=== PATIENT | female | born 1995 | race African-American/Black ===

== ENCOUNTER 2017-04-12 14:45 | Emergency (ER) | payer MEDICAID ==
[~2017-04-12] VITALS: Ht 170.2 cm; Wt 95.7 kg
[~2017-04-12 14:45] MED LIST: ALLERGY MED; BACTRIM DS TAB1 EACH PO; CELEBREX 200 M200 M1 PO; CETIRIZINE HCL5 MG PO; DIFLUCAN150 MG PO; PROTONIX40 M1 PO; STOMACH MED
[2017-04-12] MEDS ORDERED: FLEXERIL PO (14:59)
[2017-04-12] MEDS ORDERED: IBUPROFEN 800800 M1 PO (16:01)
[2017-04-12 16:25] VITALS: BP 98/70
== END 2017-04-12 16:26 | disposition home or self-care (01) ==
LOC: M.ERS 14:45
DX: S46.911A Strain of unspecified muscle, fascia and tendon at shoulder and upper arm level, right arm, initial encounter (principal); J45.909 Unspecified asthma, uncomplicated; M19.90 Unspecified osteoarthritis, unspecified site; X50.0XXA Overexertion from strenuous movement or load, initial encounter; Y93.89 Activity, other specified; Y92.89 Other specified places as the place of occurrence of the external cause; Y99.8 Other external cause status

== ENCOUNTER 2017-10-14 19:41 | Emergency (ER) | payer MEDICAID ==
[~2017-10-14] VITALS: Ht 170.2 cm; Wt 86.2 kg
[~2017-10-14 19:41] MED LIST changes: +FLEXERIL PO; +IBUPROFEN 800800 M1 PO
[2017-10-14] MEDS ORDERED: VALTREX1000 MG (19:50)
[2017-10-14 20:00] LABS: URINE BILIRUBIN NEGATIVE (Negative); URINE BLOOD 2+ (Negative); URINE CLARITY CLEAR; URINE COLOR YELLOW; URINE GLUCOSE-RANDOM NEGATIVE (Negative); URINE KETONES NEGATIVE (Negative); URINE LEUKOCYTES-REFLEX NEGATIVE (Negative); URINE NITRITE-REFLEX NEGATIVE (Negative); URINE PROTEIN NEGATIVE (Negative)
[2017-10-14 20:19] LABS: BACTERIA-REFLEX >30 Many /HPF (None Seen); CASTS None Seen /LPF (None Seen); CRYSTALS None Seen /LPF (None Seen); MUCUS None Seen strn/LPF (None Seen); SQUAMOUS >10 Many /LPF (0-3); URINE RBC 3-10 Few /HPF (0-2); URINE WBC-REFLEX 0-5 Rare /HPF (0-5)
[2017-10-14] MEDS ORDERED: ACETAMINOPHEN-1 EAC1 PO (20:30)
[2017-10-14 20:56] LABS: ABSOLUTE EOSINOPHILS 0.1 thou/uL (0.0-0.7); ABSOLUTE LYMPHOCYTES 1.8 thou/uL (0.8-5.3); ABSOLUTE MONOCYTES 0.3 thou/uL (0.0-1.2); ABSOLUTE NEUTROPHILS 2.1 thou/uL (1.6-8.1); BASOPHILS 0.9 %; EOSINOPHILS 1.3 %; HEMATOCRIT 39.7 % (37.0-47.0); HEMOGLOBIN 13.2 gm/dL (12.0-15.0); LYMPHOCYTES 41.3 %; MCH 32.2 pg (26.0-34.0); MCHC 33.3 g/dL (28.0-37.0); MCV 96.5 fL (80.0-100.0); MONOCYTES 7.7 %; MPV 10.3 fl. (7.2-11.1); NUCLEATED RBCS 0 /100WBC; PLATELET COUNT* 243 thou/uL (150-400); POLYS 48.8 %; RBC 4.11 mil/uL (4.20-5.00); RDW-CV 13.3 % (10.5-14.5); WBC 4.4 thou/uL (4.0-11.0)
[2017-10-14 21:03] LABS: CALCIUM 9.3 mg/dL (8.5-10.1); CREATININE 0.9 mg/dL (0.6-1.3); POTASSIUM 4.1 mmol/L (3.5-5.1)
[2017-10-14 21:08] LABS: ALBUMIN 3.8 g/dL (3.4-5.0); TOTAL BILIRUBIN 0.3 mg/dL (<0.1-1.0); TOTAL PROTEIN 7.5 g/dL (6.4-8.2)
[2017-10-14] MEDS ORDERED: DOXYCYCLINE 10100 M1 PO (21:21)
[2017-10-14 21:46] VITALS: BP 122/62
== END 2017-10-14 21:46 | disposition home or self-care (01) ==
LOC: M.ERS 19:41
PROVIDERS: Nurse Practitioner Family
DX: N73.9 Female pelvic inflammatory disease, unspecified (principal); J45.909 Unspecified asthma, uncomplicated; M19.90 Unspecified osteoarthritis, unspecified site

== ENCOUNTER 2018-02-28 19:25 | Emergency (ER) | payer MEDICAID ==
[~2018-02-28] VITALS: Ht 170.2 cm; Wt 81.7 kg
[~2018-02-28 19:25] MED LIST changes: +ACETAMINOPHEN-1 EAC1 PO; +DOXYCYCLINE 10100 M1 PO; +VALTREX1000 MG
[2018-02-28] MEDS ORDERED: FLEXERIL PO (19:33)
[2018-02-28] MEDS ORDERED: ZPAK PO (19:45)
[2018-02-28] MEDS ORDERED: TESSALON PERLE100 MG PO (19:45)
[2018-02-28] MEDS ORDERED: PREDNISONE 20 M20 M1 PO (19:45)
[2018-02-28] MEDS ORDERED: ALBUTEROL2.5 MG/31 INH (19:45)
[2018-02-28 20:19] VITALS: BP 136/58
== END 2018-02-28 20:19 | disposition home or self-care (01) ==
LOC: M.ERS 19:25
DX: J20.9 Acute bronchitis, unspecified (principal); J45.909 Unspecified asthma, uncomplicated; M19.90 Unspecified osteoarthritis, unspecified site

== ENCOUNTER → 2018-03-29 | Outpatient (CLI) | payer MEDICAID ==
[~2018-03-29] MED LIST changes: +ALBUTEROL2.5 MG/31 INH; +PREDNISONE 20 M20 M1 PO; +TESSALON PERLE100 MG PO; +ZPAK PO
== END ==
LOC: M.RAD 03-21 09:07
DX: M54.16 Radiculopathy, lumbar region (principal)

== ENCOUNTER → 2018-04-08 | Outpatient (CLI) | payer MEDICAID | LOC: M.ULTRA 09:00 | DX: N83.292 Other ovarian cyst, left side (principal) ==

== ENCOUNTER 2018-06-30 10:01 | Emergency (ER) | payer OTHER, MEDICAID ==
[~2018-06-30] VITALS: Ht 170.2 cm; Wt 89.8 kg
[2018-06-30] MEDS ORDERED: ULTRAM 50MG TAB50 MG PO (10:14)
[2018-06-30] MEDS ORDERED: FLEXERIL PO ×2 (10:14→10:19)
[2018-06-30 10:17] VITALS: BP 108/70
[2018-06-30] MEDS ORDERED: TRAMADOL 50 MG50 MG PO (10:18)
[2018-06-30] MEDS ORDERED: ACETAMINOPHEN-1 EAC1 PO (10:19)
== END 2018-06-30 10:19 | disposition home or self-care (01) ==
LOC: M.ERS 10:01
DX: S40.022A Contusion of left upper arm, initial encounter (principal); V49.59XA Passenger injured in collision with other motor vehicles in traffic accident, initial encounter; Y93.89 Activity, other specified; Y92.89 Other specified places as the place of occurrence of the external cause; Y99.8 Other external cause status

== ENCOUNTER 2019-06-04 10:51 | Emergency (ER) | payer MEDICAID ==
[~2019-06-04] VITALS: Ht 170.2 cm; Wt 92.5 kg
[~2019-06-04 10:51] MED LIST changes: +TRAMADOL 50 MG50 MG PO; +ULTRAM 50MG TAB50 MG PO
[2019-06-04 11:11] LABS: URINE BILIRUBIN NEGATIVE (Negative); URINE BLOOD NEGATIVE (Negative); URINE CLARITY CLEAR; URINE COLOR YELLOW; URINE GLUCOSE-RANDOM NEGATIVE (Negative); URINE KETONES NEGATIVE (Negative); URINE LEUKOCYTES-REFLEX NEGATIVE (Negative); URINE NITRITE-REFLEX NEGATIVE (Negative); URINE PROTEIN NEGATIVE (Negative); URINE SPECIFIC GRAVITY 1.025 (1.005-1.030)
[2019-06-04 12:02] LABS: ABSOLUTE BASOPHILS 0.1 thou/uL (0.0-0.2); ABSOLUTE EOSINOPHILS 0.2 thou/uL (0.0-0.7); ABSOLUTE LYMPHOCYTES 1.3 thou/uL (0.8-5.3); ABSOLUTE MONOCYTES 0.4 thou/uL (0.0-1.2); ABSOLUTE NEUTROPHILS 2.4 thou/uL (1.6-8.1); BASOPHILS 1.3 %; EOSINOPHILS 3.7 %; HEMOGLOBIN 13.1 gm/dL (12.0-15.0); LYMPHOCYTES 30.8 %; MCH 33.3 pg (26.0-34.0); MCHC 34.6 g/dL (28.0-37.0); MCV 96.3 fL (80.0-100.0); MONOCYTES 9.5 %; MPV 9.7 fl. (7.2-11.1); NUCLEATED RBCS 0 /100WBC; PLATELET COUNT* 241 thou/uL (150-400); POLYS 54.7 %; RBC 3.94 mil/uL (4.20-5.00); RDW-CV 13.5 % (10.5-14.5); WBC 4.3 thou/uL (4.0-11.0)
[2019-06-04] MEDS ORDERED: NAPROSYN500 MG PO (12:02)
[2019-06-04] MEDS ORDERED: DOXYCYCLINE 10100 MG PO (12:02)
[2019-06-04] MEDS ORDERED: FLAGYL500 M1 PO (12:02)
[2019-06-04] MEDS ORDERED: ONDANSETRON HCL4 M2 PO (12:02)
[2019-06-04 12:18] LABS: CALCIUM 8.7 mg/dL (8.5-10.1); CREATININE 0.9 mg/dL (0.6-1.3); POTASSIUM 3.9 mmol/L (3.5-5.1)
[2019-06-04 13:03] VITALS: BP 121/69
== END 2019-06-04 13:04 | disposition home or self-care (01) ==
LOC: M.ERS 10:51
PROVIDERS: Nurse Practitioner Family
DX: N73.9 Female pelvic inflammatory disease, unspecified (principal); N76.0 Acute vaginitis; B96.89 Other specified bacterial agents as the cause of diseases classified elsewhere; M19.90 Unspecified osteoarthritis, unspecified site; J45.909 Unspecified asthma, uncomplicated

== ENCOUNTER 2019-07-04 16:31 | Emergency (ER) | payer MEDICAID ==
[~2019-07-04] VITALS: Ht 170.2 cm; Wt 91.2 kg
[~2019-07-04 16:31] MED LIST changes: +DOXYCYCLINE 10100 MG PO; +FLAGYL500 M1 PO; +NAPROSYN500 MG PO; +ONDANSETRON HCL4 M2 PO
[2019-07-04] MEDS ORDERED: ZANAFLEX2 M1 PO (16:45)
[2019-07-04 16:53] LABS: URINE BILIRUBIN NEGATIVE (Negative); URINE BLOOD TRACE (Negative); URINE CLARITY SL CLOUDY; URINE COLOR YELLOW; URINE GLUCOSE-RANDOM NEGATIVE (Negative); URINE KETONES NEGATIVE (Negative); URINE LEUKOCYTES-REFLEX NEGATIVE (Negative); URINE NITRITE-REFLEX NEGATIVE (Negative); URINE PROTEIN NEGATIVE (Negative); URINE SPECIFIC GRAVITY 1.015 (1.005-1.030); URINE UROBILINOGEN 0.2 E.U./dl (0.2-1.0)
[2019-07-04 17:04] LABS: BACTERIA-REFLEX >30 Many /HPF (None Seen); CASTS None Seen /LPF (None Seen); CRYSTALS None Seen /LPF (None Seen); SQUAMOUS >10 Many /LPF (0-3); URINE RBC 0-2 Rare /HPF (0-2); URINE WBC-REFLEX 0-5 Rare /HPF (0-5)
[2019-07-04] MEDS ORDERED: FLAGYL500 M1 PO (17:12)
[2019-07-04] MEDS ORDERED: DIFLUCAN150 MG PO (17:12)
[2019-07-04] MEDS ORDERED: ZOFRAN ODT4 MG PO (17:17)
[2019-07-04 17:30] VITALS: BP 127/69
== END 2019-07-04 17:31 | disposition home or self-care (01) ==
LOC: M.ERS 16:31
PROVIDERS: Nurse Practitioner Psychiatric/Mental Health
DX: N89.8 Other specified noninflammatory disorders of vagina (principal); R30.0 Dysuria; J45.909 Unspecified asthma, uncomplicated; M19.90 Unspecified osteoarthritis, unspecified site

== ENCOUNTER 2019-09-24 11:35 | Emergency (ER) | payer MEDICAID ==
[~2019-09-24] VITALS: Ht 170.2 cm; Wt 93.9 kg
[~2019-09-24 11:35] MED LIST changes: +ZANAFLEX2 M1 PO; +ZOFRAN ODT4 MG PO
[2019-09-24] MEDS ORDERED: CIPROFLOXIN HC2.5 M1 OTIC ×2 (12:24→12:25)
[2019-09-24 12:48] VITALS: BP 119/78
== END 2019-09-24 12:49 | disposition home or self-care (01) ==
LOC: M.ERS 11:35
DX: H10.9 Unspecified conjunctivitis (principal); J45.909 Unspecified asthma, uncomplicated; M19.90 Unspecified osteoarthritis, unspecified site; F17.210 Nicotine dependence, cigarettes, uncomplicated

== ENCOUNTER 2019-10-14 12:30 | Emergency (ER) | payer MEDICAID ==
[~2019-10-14] VITALS: Ht 170.2 cm; Wt 94.3 kg
[~2019-10-14 12:30] MED LIST changes: +CIPROFLOXIN HC2.5 M1 OTIC
[2019-10-14] MEDS ORDERED: AMOXICILLIN 50500 MG PO (15:08)
[2019-10-14] MEDS ORDERED: TYLENOL WITH CO1 TA1 PO (15:08)
[2019-10-14 15:16] VITALS: BP 116/54
== END 2019-10-14 15:17 | disposition home or self-care (01) ==
LOC: M.ERS 12:30
DX: J02.9 Acute pharyngitis, unspecified (principal); J45.909 Unspecified asthma, uncomplicated; M19.90 Unspecified osteoarthritis, unspecified site

== ENCOUNTER 2019-11-16 17:37 | Emergency (ER) | payer MEDICAID ==
[~2019-11-16] VITALS: Ht 170.2 cm; Wt 89.4 kg
[~2019-11-16 17:37] MED LIST changes: +AMOXICILLIN 50500 MG PO; +TYLENOL WITH CO1 TA1 PO
[2019-11-16 18:08] LABS: URINE BILIRUBIN NEGATIVE (Negative); URINE BLOOD TRACE (Negative); URINE CLARITY CLEAR; URINE COLOR YELLOW; URINE GLUCOSE-RANDOM NEGATIVE (Negative); URINE KETONES NEGATIVE (Negative); URINE LEUKOCYTES-REFLEX NEGATIVE (Negative); URINE NITRITE-REFLEX NEGATIVE (Negative); URINE PROTEIN NEGATIVE (Negative); URINE SPECIFIC GRAVITY <= 1.005 (1.005-1.030); URINE UROBILINOGEN 0.2 E.U./dl (0.2-1.0)
[2019-11-16 18:41] LABS: ABSOLUTE EOSINOPHILS 0.1 thou/uL (0.0-0.7); ABSOLUTE LYMPHOCYTES 1.6 thou/uL (0.8-5.3); ABSOLUTE MONOCYTES 0.4 thou/uL (0.0-1.2); ABSOLUTE NEUTROPHILS 2.7 thou/uL (1.6-8.1); EOSINOPHILS 1.7 %; LYMPHOCYTES 33.3 %; MCH 34.2 pg (26.0-34.0); MCHC 35.8 g/dL (28.0-37.0); MCV 95.7 fL (80.0-100.0); MONOCYTES 7.9 %; MPV 9.6 fl. (7.2-11.1); NUCLEATED RBCS 0 /100WBC; PLATELET COUNT* 225 thou/uL (150-400); POLYS 56.1 %; RBC 4.08 mil/uL (4.20-5.00); RDW-CV 13.1 % (10.5-14.5); WBC 4.9 thou/uL (4.0-11.0)
[2019-11-16 18:50] LABS: CALCIUM 8.4 mg/dL (8.5-10.1); CREATININE 0.8 mg/dL (0.6-1.3); POTASSIUM 3.7 mmol/L (3.5-5.1)
[2019-11-16 18:55] LABS: ALBUMIN 3.8 g/dL (3.4-5.0); TOTAL BILIRUBIN 0.3 mg/dL (<0.1-1.0); TOTAL PROTEIN 7.6 g/dL (6.4-8.2)
[2019-11-16] MEDS ORDERED: AZITHROMYCIN 2250 MG PO (18:57)
[2019-11-16] MEDS ORDERED: SUPRAX400 M1 PO (18:57)
[2019-11-16] MEDS ORDERED: HYDROCODON-ACE1 EAC7 PO (19:45)
[2019-11-16 20:07] VITALS: BP 110/65
== END 2019-11-16 20:07 | disposition home or self-care (01) ==
LOC: M.ERS 17:37
PROVIDERS: Family Medicine
DX: R10.31 Right lower quadrant pain (principal); R11.2 Nausea with vomiting, unspecified; J45.909 Unspecified asthma, uncomplicated; M19.90 Unspecified osteoarthritis, unspecified site

== ENCOUNTER 2019-12-22 10:50 | Emergency (ER) | payer MEDICAID ==
[~2019-12-22] VITALS: Ht 170.2 cm; Wt 88.0 kg
[~2019-12-22 10:50] MED LIST changes: +AZITHROMYCIN 2250 MG PO; +HYDROCODON-ACE1 EAC7 PO; +SUPRAX400 M1 PO
[2019-12-22 11:25] LABS: ABSOLUTE BASOPHILS 0.1 thou/uL (0.0-0.2); ABSOLUTE EOSINOPHILS 0.1 thou/uL (0.0-0.7); ABSOLUTE LYMPHOCYTES 1.4 thou/uL (0.8-5.3); ABSOLUTE MONOCYTES 0.4 thou/uL (0.0-1.2); ABSOLUTE NEUTROPHILS 2.5 thou/uL (1.6-8.1); BASOPHILS 1.2 %; EOSINOPHILS 1.2 %; HEMATOCRIT 38.1 % (37.0-47.0); HEMOGLOBIN 13.2 gm/dL (12.0-15.0); LYMPHOCYTES 33.3 %; MCH 33.6 pg (26.0-34.0); MCHC 34.7 g/dL (28.0-37.0); MCV 96.7 fL (80.0-100.0); MONOCYTES 8.1 %; MPV 9.3 fl. (7.2-11.1); NUCLEATED RBCS 0 /100WBC; PLATELET COUNT* 209 thou/uL (150-400); POLYS 56.2 %; RBC 3.94 mil/uL (4.20-5.00); RDW-CV 12.6 % (10.5-14.5); WBC 4.4 thou/uL (4.0-11.0)
[2019-12-22 11:29] LABS: CALCIUM 8.8 mg/dL (8.5-10.1); POTASSIUM 3.8 mmol/L (3.5-5.1)
[2019-12-22 11:34] LABS: ALBUMIN 3.6 g/dL (3.4-5.0); TOTAL BILIRUBIN 0.4 mg/dL (<0.1-1.0); TOTAL PROTEIN 6.9 g/dL (6.4-8.2)
[2019-12-22 12:01] LABS: URINE BILIRUBIN NEGATIVE (Negative); URINE BLOOD NEGATIVE (Negative); URINE CLARITY CLEAR; URINE COLOR YELLOW; URINE GLUCOSE-RANDOM NEGATIVE (Negative); URINE KETONES NEGATIVE (Negative); URINE LEUKOCYTES-REFLEX NEGATIVE (Negative); URINE NITRITE-REFLEX NEGATIVE (Negative); URINE PROTEIN NEGATIVE (Negative); URINE SPECIFIC GRAVITY 1.025 (1.005-1.030); URINE UROBILINOGEN 0.2 E.U./dl (0.2-1.0)
[2019-12-22] MEDS ORDERED: APAP W/CODEINE1 TA2 PO (13:01)
[2019-12-22] MEDS ORDERED: HYDROCORTISONE3011 TOP (13:11)
[2019-12-22 13:22] VITALS: BP 114/74
--- NOTE | 2019-12-23 09:29 | EKG ---
[place] [address] ELECTROCARDIOGRAM REPORT Name: ANKITA CHAPA Room: [facility]#: [id number] Admission: 12/22/19 Attend Phys: Discharge: 12/22/19 Date of : 89 Date of Service: 12/22/19 1054 Report #: [id number] THIS REPORT FOR: //name// [facility] ED Test Date: 2019-12-22 Test Time: 10:54:37 Pat Name: ANKITA CHAPA Department: Room: Gender: F Import/Export Administrator: SAMANTA : 1995 Requested By: Gracie Estes Order Number: [id number] MD: Abdi Ruby Measurements Intervals [place] Rate: 102 P: 69 MA: 141 QRS: 62 QRSD: 94 T: 27 QT: 329 QTc: 429 Interpretive Statements Sinus tachycardia No previous ECG available for comparison Electronically Signed On 12-23-2019 9:29:37 CDT by Abdi Ruby [email or web address] <ELECTRONICALLY SIGNED> By: Abdi Ruby MD, [facility] 12/23/19 0929 1054 105 Abdi Ruby MD, FACC /EPI
== END 2019-12-22 13:23 | disposition home or self-care (01) ==
LOC: M.ERS 10:50
PROVIDERS: Nurse Practitioner Family
DX: R07.89 Other chest pain (principal); L25.9 Unspecified contact dermatitis, unspecified cause; J45.909 Unspecified asthma, uncomplicated; M19.90 Unspecified osteoarthritis, unspecified site; Z79.899 Other long term (current) drug therapy

== ENCOUNTER 2020-01-26 18:33 | Emergency (ER) | payer MEDICAID ==
[~2020-01-26] VITALS: Ht 170.2 cm; Wt 93.0 kg
[~2020-01-26 18:33] MED LIST changes: +APAP W/CODEINE1 TA2 PO; +HYDROCORTISONE3011 TOP
[2020-01-26] MEDS ORDERED: BACLOFEN5 MG PO (20:14)
[2020-01-26 20:49] LABS: URINE BILIRUBIN NEGATIVE (Negative); URINE BLOOD NEGATIVE (Negative); URINE CLARITY CLEAR; URINE COLOR YELLOW; URINE GLUCOSE-RANDOM NEGATIVE (Negative); URINE KETONES NEGATIVE (Negative); URINE LEUKOCYTES-REFLEX NEGATIVE (Negative); URINE NITRITE-REFLEX NEGATIVE (Negative); URINE PROTEIN NEGATIVE (Negative); URINE SPECIFIC GRAVITY 1.025 (1.005-1.030); URINE UROBILINOGEN 0.2 E.U./dl (0.2-1.0)
[2020-01-26] MEDS ORDERED: KEFLEX500 M1 PO (21:58)
[2020-01-26] MEDS ORDERED: IBUPROFEN 600600 M1 PO (22:01)
[2020-01-26] MEDS ORDERED: ULTRAM 50MG TAB50 MG PO (22:14)
[2020-01-26 22:18] VITALS: BP 110/70
== END 2020-01-26 22:19 | disposition home or self-care (01) ==
LOC: M.ERS 18:33
PROVIDERS: Nurse Practitioner Family
DX: R10.9 Unspecified abdominal pain (principal); R30.0 Dysuria; R10.2 Pelvic and perineal pain; M54.9 Dorsalgia, unspecified; J45.909 Unspecified asthma, uncomplicated; M19.90 Unspecified osteoarthritis, unspecified site; Z79.899 Other long term (current) drug therapy; Z91.040 Latex allergy status; Z88.8 Allergy status to other drugs, medicaments and biological substances

== ENCOUNTER 2020-04-05 18:36 | Emergency (ER) | payer MEDICAID ==
[~2020-04-05] VITALS: Ht 170.2 cm; Wt 88.9 kg
[~2020-04-05 18:36] MED LIST changes: +BACLOFEN5 MG PO; +IBUPROFEN 600600 M1 PO; +KEFLEX500 M1 PO
[2020-04-05] MEDS ORDERED: PROTONIX40 M2 PO (18:50)
[2020-04-05] MEDS ORDERED: METHOCARBAMOL500 M2 PO (18:50)
[2020-04-05 19:10] LABS: URINE BILIRUBIN NEGATIVE (Negative); URINE BLOOD NEGATIVE (Negative); URINE COLOR YELLOW; URINE GLUCOSE-RANDOM NEGATIVE (Negative); URINE KETONES 2+ (Negative); URINE LEUKOCYTES-REFLEX TRACE (Negative); URINE NITRITE-REFLEX NEGATIVE (Negative); URINE PROTEIN NEGATIVE (Negative)
[2020-04-05 19:11] LABS: URINE CLARITY SL HAZY
[2020-04-05 19:19] LABS: SQUAMOUS >10 Many /LPF (0-3)
[2020-04-05 19:20] LABS: BACTERIA-REFLEX >30 Many /HPF (None Seen); MUCUS None Seen strn/LPF (None Seen); URINE RBC 0-2 Rare /HPF (0-2); URINE WBC-REFLEX 0-5 Rare /HPF (0-5)
[2020-04-05 19:21] LABS: CASTS None Seen /LPF (None Seen); CRYSTALS None Seen /LPF (None Seen)
[2020-04-05] MEDS ORDERED: TYLENOL EXTRA500 MG PO (20:14)
[2020-04-05 20:17] VITALS: BP 119/67
== END 2020-04-05 20:17 | disposition home or self-care (01) ==
LOC: M.ERS 18:36
PROVIDERS: Nurse Practitioner Family
DX: N89.8 Other specified noninflammatory disorders of vagina (principal); J02.9 Acute pharyngitis, unspecified; J45.909 Unspecified asthma, uncomplicated; Z79.899 Other long term (current) drug therapy; Z88.8 Allergy status to other drugs, medicaments and biological substances; Z91.040 Latex allergy status

== ENCOUNTER 2020-08-22 19:41 | Emergency (ER) | payer MEDICAID ==
[~2020-08-22] VITALS: Ht 170.2 cm; Wt 97.5 kg
[~2020-08-22 19:41] MED LIST changes: +METHOCARBAMOL500 M2 PO; +PROTONIX40 M2 PO; +TYLENOL EXTRA500 MG PO
[2020-08-22] MEDS ORDERED: NEXPLANON68 MG SUBQ (20:00)
[2020-08-22 21:08] LABS: URINE BILIRUBIN NEGATIVE (Negative); URINE BLOOD 2+ (Negative); URINE COLOR YELLOW; URINE GLUCOSE-RANDOM NEGATIVE (Negative); URINE KETONES TRACE (Negative); URINE LEUKOCYTES-REFLEX NEGATIVE (Negative); URINE NITRITE-REFLEX NEGATIVE (Negative); URINE PROTEIN NEGATIVE (Negative); URINE SPECIFIC GRAVITY 1.025 (1.005-1.030); URINE UROBILINOGEN >= 8.0 E.U./dl (0.2-1.0)
[2020-08-22 21:11] LABS: URINE CLARITY HAZY
[2020-08-22 21:22] LABS: SQUAMOUS >10 Many /LPF (0-3); URINE WBC-REFLEX 0-5 Rare /HPF (0-5)
[2020-08-22 21:23] LABS: BACTERIA-REFLEX >30 Many /HPF (None Seen); CASTS None Seen /LPF (None Seen); CRYSTALS None Seen /LPF (None Seen); URINE RBC 0-2 Rare /HPF (0-2)
[2020-08-22 21:48] LABS: ABSOLUTE EOSINOPHILS 0.1 thou/uL (0.0-0.7); ABSOLUTE LYMPHOCYTES 2.1 thou/uL (0.8-5.3); ABSOLUTE MONOCYTES 0.4 thou/uL (0.0-1.2); ABSOLUTE NEUTROPHILS 2.5 thou/uL (1.6-8.1); BASOPHILS 0.9 %; EOSINOPHILS 1.2 %; HEMOGLOBIN 13.8 gm/dL (12.0-15.0); LYMPHOCYTES 41.2 %; MCH 32.4 pg (26.0-34.0); MCHC 34.4 g/dL (28.0-37.0); MCV 94.1 fL (80.0-100.0); MONOCYTES 7.6 %; MPV 8.9 fl. (7.2-11.1); NUCLEATED RBCS 0 /100WBC; PLATELET COUNT* 247 thou/uL (150-400); POLYS 49.1 %; RBC 4.26 mil/uL (4.20-5.00); RDW-CV 12.8 % (10.5-14.5)
[2020-08-22 22:07] LABS: CALCIUM 8.6 mg/dL (8.5-10.1); CREATININE 0.8 mg/dL (0.6-1.3); POTASSIUM 3.7 mmol/L (3.5-5.1)
[2020-08-22 22:12] LABS: ALBUMIN 4.1 g/dL (3.4-5.0); TOTAL BILIRUBIN 0.7 mg/dL (<0.1-1.0); TOTAL PROTEIN 7.8 g/dL (6.4-8.2)
[2020-08-22] MEDS ORDERED: PHENERGAN 25 MG25 M1 PO (22:31)
[2020-08-22] MEDS ORDERED: IBUPROFEN 800800 M1 PO (22:31)
[2020-08-22] MEDS ORDERED: CEPHALEXIN500 MG PO (22:31)
[2020-08-22] MEDS ORDERED: FLEXERIL PO (23:03)
[2020-08-22 23:11] VITALS: BP 120/68
== END 2020-08-22 23:11 | disposition home or self-care (01) ==
LOC: M.ERS 19:41
PROVIDERS: Nurse Practitioner Family
DX: N39.0 Urinary tract infection, site not specified (principal); J45.909 Unspecified asthma, uncomplicated; M19.90 Unspecified osteoarthritis, unspecified site; Z91.040 Latex allergy status; Z88.1 Allergy status to other antibiotic agents; F17.200 Nicotine dependence, unspecified, uncomplicated

== ENCOUNTER 2021-01-21 17:13 | Emergency (ER) | payer MEDICAID ==
[~2021-01-21] VITALS: Ht 170.2 cm; Wt 101.2 kg
[~2021-01-21 17:13] MED LIST changes: +CEPHALEXIN500 MG PO; +NEXPLANON68 MG SUBQ; +PHENERGAN 25 MG25 M1 PO
[2021-01-21] MEDS ORDERED: LORATIDINE 10 M10 M1 PO (17:32)
[2021-01-21] MEDS ORDERED: PROMETHAZINE-C473 ML PO (17:32)
[2021-01-21 17:50] LABS: URINE BILIRUBIN NEGATIVE (Negative); URINE BLOOD 1+ (Negative); URINE CLARITY CLEAR; URINE COLOR YELLOW; URINE GLUCOSE-RANDOM NEGATIVE (Negative); URINE KETONES TRACE (Negative); URINE LEUKOCYTES-REFLEX NEGATIVE (Negative); URINE NITRITE-REFLEX NEGATIVE (Negative); URINE PROTEIN NEGATIVE (Negative); URINE SPECIFIC GRAVITY 1.025 (1.005-1.030)
[2021-01-21] MEDS ORDERED: CLEOCIN HCL300 MG PO ×2 (18:03→19:52)
[2021-01-21 18:05] LABS: BACTERIA-REFLEX 1-9 Few /HPF (None Seen); CASTS None Seen /LPF (None Seen); CRYSTALS None Seen /LPF (None Seen); SQUAMOUS 4-10 Moderate /LPF (0-3); URINE RBC 3-10 Few /HPF (0-2); URINE WBC-REFLEX 0-5 Rare /HPF (0-5)
[2021-01-21 18:25] LABS: HEMATOCRIT 39.5 % (37.0-47.0); HEMOGLOBIN 13.5 gm/dL (12.0-15.0); MCH 32.3 pg (26.0-34.0); MPV 9.2 fl. (7.2-11.1); RBC 4.16 mil/uL (4.20-5.00); RDW-CV 13.1 % (10.5-14.5); WBC 6.6 thou/uL (4.0-11.0)
[2021-01-21 18:34] LABS: CALCIUM 8.6 mg/dL (8.5-10.1); CREATININE 0.9 mg/dL (0.6-1.3); POTASSIUM 3.8 mmol/L (3.5-5.1)
[2021-01-21 18:43] LABS: ALBUMIN 3.8 g/dL (3.4-5.0); TOTAL BILIRUBIN 0.5 mg/dL (<0.1-1.0); TOTAL PROTEIN 7.5 g/dL (6.4-8.2)
[2021-01-21 19:55] VITALS: BP 135/61
== END 2021-01-21 19:55 | disposition home or self-care (01) ==
LOC: M.ERS 17:13
PROVIDERS: Emergency Medicine Emergency Medical Services; Nurse Practitioner Psychiatric/Mental Health
DX: N76.0 Acute vaginitis (principal); N89.8 Other specified noninflammatory disorders of vagina; J45.909 Unspecified asthma, uncomplicated; M19.90 Unspecified osteoarthritis, unspecified site; Z79.899 Other long term (current) drug therapy; Z72.51 High risk heterosexual behavior; Z91.040 Latex allergy status; Z88.1 Allergy status to other antibiotic agents